=== PATIENT | female | born 1990 | race Caucasian/White ===

== ENCOUNTER 2018-11-06 18:56 | Observation (INO) ==
[2018-11-06] MEDS ORDERED: *HR* FentaNYL (PF) 100 MCG/2 ML VIAL IVP ONE (19:58)
--- NOTE | 2018-11-06 20:21 | Emergency Department Note ---
Disposition Clinical Impression: Abscess of skin or subcutaneous tissue Qualifiers: Site of cutaneous abscess: buttock Qualified Code(s): L02.31 - Cutaneous abscess of buttock Disposition: Still a Patient Condition: Good Instructions: Abscess Follow-up (ED) Referrals: NONE,PCP [Primary Care Provider] - Forms: ED Satisfaction Letter Time of Disposition: 23:08 General Adult HPI - General Chief complaint: ED Skin/Abscess/Foreign Body Stated complaint: abscess to right leg Time Seen by Provider: 11/06/18 19:50 Source: patient Mode of arrival: ambulatory Limitations: no limitations Nursing Notes Reviewed: Yes Vital Signs Reviewed: Yes - History of Present Illness HPI Narrative: Patient is a 28-year-old female with a past medical history of anxiety presents with an abscess for last week. She denies experiencing any trauma to the area. Thinks abscess may be related to shaving her leg. She visited another physician had attempted drainage and she was treated with a 10 day course of Keflex and Bactrim. However the abscess did not improve and continued to worsen and she experiences increased pain. She denies any nausea/vomiting/fevers/chills. De nies exposure to any animal bites or water exposure. Denies IV drug use. Pain Scale: 8 - Related Data Home Medications Medication Instructions Recorded Confirmed No Known Home Drugs 11/06/18 11/06/18 Allergies Allergy/AdvReac Type Severity Reaction Status Date / Time No Known Allergies Allergy Verified 11/06/18 20:04 All systems ED: reviewed and negative except as stated. Review of Systems: As Per HPI Constitutional: Denies: fever, chills, weakness, weight change, night sweats Eyes: Denies: eye pain, vision change ENT ED: Denies: ear pain, throat pain, congestion Cardiovascular: Denies: chest pain, palpitations, dyspnea on exertion Respiratory: Denies: cough, dyspnea, wheezes, hemoptysis Gastrointestinal: Denies: abdominal pain, nausea, vomiting, diarrhea, constipation Genitourinary: Denies: urgency, dysuria, frequency Musculoskeletal: Denies: back pain, neck pain Integumentary: Reports: lesions. Denies: rash Neurological: Denies: headache, weakness, numbness Psychiatric: Reports: anxiety. Denies: depression Endocrine: Denies: fatigue, heat or cold intolerance Past Medical History - Past Medical History Attestation: Yes The following information was validated with the patient. Source: patient Physical Exam - General Limitations: no limitations General appearance: alert, in no apparent distress - Head Head exam: atraumatic, normocephalic, normal inspection - Eye Eye exam: Present: normal appearance, PERRL, EOMI - ENT ENT exam: normal exam, normal oropharynx, mucous membranes moist - Neck Neck exam: Present: normal inspection, full ROM, trachea midline - Chest Chest inspection: Present: normal inspection, symmetric chest wall rise - Respiratory Respiratory exam: Present: normal lung sounds bilaterally - Cardiovascular Cardiovascular exam: Present: regular rate, normal rhythm, normal heart sounds - Abdominal Exam Abdominal exam: Present: soft, Non-Tender. Absent: tenderness, distention, guarding, rebound, rigidity - Extremities Exam Extremities exam: Present: tenderness (5 Centimeter diameter abscess located on the right thigh with surrounding erythema, very tender to palpation.) - Expanded Lower Extremity Exam Hip/Pelvis exam: Present: tenderness, erythema. Absent: full ROM (Right hip range of motion limited due to pain) - Back Exam Back exam: Present: normal inspection, full ROM. Absent: tenderness - Neurological Exam Neurological exam: Present: alert, oriented X3 - Psychiatric Psychiatric exam: Present: normal affect, normal mood - Skin Skin exam: Present: warm, dry, intact, normal color Course Course Narrative: She was seen and examined. Plan is to obtain CBC, BMP, blood cultures, wound cultures, CT of the right lower extremity with contrast. Urine obtained. Bedside ultrasound was performed showing cobblestoning but no pocket of fluid amenable to incision and drainage. Vital Signs Temperature 98.8 F 11/06/18 18:58 Pulse Rate 100 11/06/18 18:58 Respiratory Rate 18 11/06/18 18:58 Blood Pressure 121/77 11/06/18 18:58 O2 Sat by Pulse Oximetry 97 11/06/18 18:58 Temperature 98.8 F 11/06/18 20:23 Pulse Rate 100 11/06/18 20:23 Respiratory Rate 18 11/06/18 20:23 Blood Pressure 121/77 11/06/18 20:23 O2 Sat by Pulse Oximetry 97 11/06/18 20:23 Oxygen Delivery Oxygen Delivery Room Air Medical Decision Making - [facility] Narrative Medical decision making narrative: Patient is a 28-year-old female with a history of anxiety who presents with an abscess of right hip. Patient has been afebrile. Patient completed 5 out of 10 days of a course of Keflex and Bactrim. Labs obtained were notable for a white count of 11.4. Blood and wound cultures were obtained. Urine was negative. A CT scan of the hip with contrast was obtained. Given the patient has failed outpatient antibiotic treatment, patient will likely need inpatient admission for IV antibiotics. She was started on vancomycin. Patient was signed out out to the oncoming team for pending CT scan and admission. - Medical Records Medical records reviewed: Yes I reviewed the patient's medical records. - Lab Data Lab results reviewed: Yes I reviewed the patient's lab results. Result diagrams: 11/06/18 20:07 11/06/18 20:07 Lab Results 11/06/18 11/06/18 11/06/18 Range/Units 20:07 20:07 22:07 WBC 11.4 H (4.3-11.1) K/mcL RBC 4.03 (3.82-4.97) M/mcL Hgb 12.5 (11.5-15.4) g/dL Hct 37.4 (35.3-44.9) % MCV 92.8 (83.0-100.0) fL MCH 31.0 (28.0-33.3) pg MCHC 33.4 (31.6-35.5) g/dL RDW 13.5 (11.5-14.5) % Plt Count 488 H (140-400) K/mcL MPV 9.7 (9.4-12.4) fL Immature Gran % 0.4 (0-4) % Seg Neutrophils % 53.1 % Lymphocytes % 37.7 % Monocytes % 7.1 % Eosinophils % 1.1 % Basophils % 0.6 % Neutrophils # 6.1 (1.6-8.9) K/mcL Lymphocytes # 4.3 (0.6-4.6) K/mcL Monocytes # 0.8 (0.0-1.3) K/mcL Eosinophils # 0.1 (0.0-0.6) K/mcL Basophils # 0.1 (0.0-0.2) K/mcL Sodium 135 L (136-145) mEq/L Potassium 3.8 (3.5-5.1) mEq/L Chloride 102 (98-107) mEq/L Carbon Dioxide 25 (23-29) mEq/L BUN 9 (6-20) mg/dL Creatinine 0.79 (0.60-1.20) mg/dL Est GFR ( Amer) > 60 (> 60) Est GFR (Non-Af Amer) > 60 (> 60) BUN/Creatinine Ratio 11 (6-26) Glucose 97 (70-105) mg/dL Calculated Osmolality 279 L (280-300) Calcium 9.4 (8.6-10.3) mg/dL Urine Test Negative (Negative) - Radiology Data Radiology results reviewed: Yes I reviewed the patient's radiology results.
[2018-11-06] MEDS ORDERED: Isovue-370 500 ML BOTTLE IVP ONE (20:33)
[2018-11-06 20:46] LABS: Basophils # 0.1 K/mcL (0.0-0.2); Basophils % 0.6 %; Eosinophils # 0.1 K/mcL (0.0-0.6); Eosinophils % 1.1 %; Hematocrit 37.4 % (35.3-44.9); Hemoglobin 12.5 g/dL (11.5-15.4); Immature Granulocytes % 0.4 % (0-4); Lymphocytes # 4.3 K/mcL (0.6-4.6); Lymphocytes % 37.7 %; Mean Corpuscular HGB Conc 33.4 g/dL (31.6-35.5); Mean Corpuscular Volume 92.8 fL (83.0-100.0); Mean Platelet Volume 9.7 fL (9.4-12.4); Monocytes # 0.8 K/mcL (0.0-1.3); Monocytes % 7.1 %; Neutrophils # 6.1 K/mcL (1.6-8.9); Platelet Count 488 K/mcL (140-400); Red Blood Count 4.03 M/mcL (3.82-4.97); Red Cell Distribution Width 13.5 % (11.5-14.5); Segmented Neutrophils % 53.1 %; White Blood Count 11.4 K/mcL (4.3-11.1)
--- NOTE | 2018-11-06 20:46 | Emergency Department Note ---
Disposition Clinical Impression: Abscess of skin or subcutaneous tissue Disposition: Still a Patient Condition: Fair Referrals: NONE,PCP [Primary Care Provider] - Forms: ED Satisfaction Letter Time of Disposition: 23:02 General Adult HPI - General Chief complaint: ED Skin/Abscess/Foreign Body Stated complaint: abscess to right leg Time Seen by Provider: 11/06/18 19:50 Source: patient Mode of arrival: ambulatory Limitations: no limitations Nursing Notes Reviewed: Yes Vital Signs Reviewed: Yes - History of Present Illness Pain Scale: 8 - Related Data Home Medications Medication Instructions Recorded Confirmed No Known Home Drugs 11/06/18 11/06/18 Allergies Allergy/AdvReac Type Severity Reaction Status Date / Time No Known Allergies Allergy Verified 11/06/18 20:04 Constitutional: Denies: fever, chills, weakness, weight change, night sweats Eyes: Denies: eye pain, vision change ENT ED: Denies: ear pain, throat pain, congestion Cardiovascular: Denies: chest pain, palpitations, dyspnea on exertion Respiratory: Denies: cough, dyspnea, wheezes, hemoptysis Gastrointestinal: Denies: abdominal pain, nausea, vomiting, diarrhea, constipation Genitourinary: Denies: urgency, dysuria, frequency Musculoskeletal: Denies: back pain, neck pain Integumentary: Reports: lesions. Denies: rash Neurological: Denies: headache, weakness, numbness Psychiatric: Reports: anxiety. Denies: depression Endocrine: Denies: fatigue, heat or cold intolerance Past Medical History - Past Medical History Medical history: Reports: no medical history Psychiatric history: Reports: no psych history - Social History Smoking Status: Never smoker Smokeless Tobacco Status: No Alcohol use: Reports: none Drug use: Reports: none Physical Exam - General Limitations: no limitations Course Vital Signs Temperature 98.8 F 11/06/18 18:58 Pulse Rate 100 11/06/18 18:58 Respiratory Rate 18 11/06/18 18:58 Blood Pressure 121/77 11/06/18 18:58 O2 Sat by Pulse Oximetry 97 11/06/18 18:58 Temperature 98.8 F 11/06/18 20:23 Pulse Rate 100 11/06/18 20:23 Respiratory Rate 18 11/06/18 20:23 Blood Pressure 121/77 11/06/18 20:23 O2 Sat by Pulse Oximetry 97 11/06/18 20:23 Oxygen Delivery Oxygen Delivery Room Air Medical Decision Making - Lab Data Result diagrams: 11/06/18 20:07 11/06/18 20:07 Lab Results 11/06/18 11/06/18 11/06/18 Range/Units 20:07 20:07 22:07 WBC 11.4 H (4.3-11.1) K/mcL RBC 4.03 (3.82-4.97) M/mcL Hgb 12.5 (11.5-15.4) g/dL Hct 37.4 (35.3-44.9) % MCV 92.8 (83.0-100.0) fL MCH 31.0 (28.0-33.3) pg MCHC 33.4 (31.6-35.5) g/dL RDW 13.5 (11.5-14.5) % Plt Count 488 H (140-400) K/mcL MPV 9.7 (9.4-12.4) fL Immature Gran % 0.4 (0-4) % Seg Neutrophils % 53.1 % Lymphocytes % 37.7 % Monocytes % 7.1 % Eosinophils % 1.1 % Basophils % 0.6 % Neutrophils # 6.1 (1.6-8.9) K/mcL Lymphocytes # 4.3 (0.6-4.6) K/mcL Monocytes # 0.8 (0.0-1.3) K/mcL Eosinophils # 0.1 (0.0-0.6) K/mcL Basophils # 0.1 (0.0-0.2) K/mcL Sodium 135 L (136-145) mEq/L Potassium 3.8 (3.5-5.1) mEq/L Chloride 102 (98-107) mEq/L Carbon Dioxide 25 (23-29) mEq/L BUN 9 (6-20) mg/dL Creatinine 0.79 (0.60-1.20) mg/dL Est GFR ( Amer) > 60 (> 60) Est GFR (Non-Af Amer) > 60 (> 60) BUN/Creatinine Ratio 11 (6-26) Glucose 97 (70-105) mg/dL Calculated Osmolality 279 L (280-300) Calcium 9.4 (8.6-10.3) mg/dL Urine Test Negative (Negative) Attestation Statement - Attestation Attestation: I examined this patient and my medical decision-making was reviewed with the Resident Physician. I agree with the documented findings, disposition and treatment plan as described except to the extent set forth below. Patient presents to the ED with a chief complaint of an abscess. Patient has an abscess on her right posterior thigh/buttock. Onset several days ago. She has seen her PCP and she has had an I&D performed. It is getting worse. She has been on antibiotics. On exam she is in no distress. She is a large open wound to the right posterior thigh and buttock with purulent drainage. Mild ordoñez rrounding cellulitis. Plan. Area is open and draining. Do not believe she needs an I&D in the ED. We will check some basic labs and a CT scan to evaluate for extension. Likely admission for IV anabiotic. I was present for the bedside ultrasound. CT scan still pending at this time. 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
[2018-11-06 21:05] LABS: BUN/Creatinine Ratio 11 (6-26); Blood Urea Nitrogen 9 mg/dL (6-20); Calcium 9.4 mg/dL (8.6-10.3); Carbon Dioxide 25 mEq/L (23-29); Chloride 102 mEq/L (98-107); Glucose 97 mg/dL (70-105); Osmolality,Calculated 279 (280-300); Potassium 3.8 mEq/L (3.5-5.1); Sodium 135 mEq/L (136-145); eGFR For African Americans > 60 (> 60); eGFR For Non-African Americans > 60 (> 60)
[2018-11-06] MEDS ORDERED: Nicotine 7 MG PATCH.TD24 TD ONE (22:20)
[2018-11-07] MEDS ORDERED: Acetaminophen 325 MG TABLET PO PRN (01:15)
[2018-11-07] MEDS: *HR* HYDROcodone/Acet 5/325 mg TABLET PO PRN ×3 (01:51→20:57)
[2018-11-07] MEDS ORDERED: Naloxone 0.4 MG/ML INJ IVP PRN (03:33)
--- NOTE | 2018-11-07 03:57 | Internal Med History&Physical ---
Date of Encounter: 11/07/18 Time of Encounter: 03:15 Internal Medicine - H&P: HPI Chief complaint: Abscess Admitted From: Home Plans for Post Hospital Care: Home History of present illness: Ms. Do is a 28 year old female with past medical history significant for anxiety who presents for 1 week history of abscess to her right lower extremity. Reports being seen at [facility] ER on Friday and underwent an incision and drainage and was started on keflex and bactrim. Reports calling ER today as wound continues to have drainage, redness, and pain and they advised her to come to [facility] for further evaluation. Reports chills and possible fever at home but has not checked her temperature. Also has had some nausea she thinks may be due to taking antibiotics. Denies any known trauma to area, just started noticing it getting red and swollen. Reports she may have cut herself shaving but is unsure. ER performed bedside ultrasound which showed cobblestoning but no pockets of fluid amendable to incision and drainage. ER also completed CT of right lower extremity which showed skin thickening and focal subcutaneous stranding and a few locules of subcutaneous gas along the posterior right thigh with irregularity of the superficial soft tissues suggesting soft tissue wound/ulceration with underlying infectious/inflammatory change, with no organized drainable fluid collection identified, no acute osseous abnormality, and no evidence of osteomyelitis. Patient received pain medication in ER and once to floor and now reports current improvement in her pain. Pain is exacerbated with palpation and movement of extremity. Currently denies any headache, chest pain, shortness of breath, abdominal pain, bowel or bladder changes. No longer follows regularly with a PCP as her former provider has retired. Denies any alcohol or drug use. Past Med Surg Social Fam HX - Past Medical History Medical history: no medical history Psychiatric history: no psych history - Past Surgical History Surgical History: other Additional surgical history: cyst removed from uterus - Social History Smoking Status: Current every day smoker Packs per day: 2 Smokeless Tobacco Status: No Alcohol use: none Drug use: none - Family History Father Living Status: Hx Family Cancer: Yes (prostate) Sister Living Status: Still Living Hx Family Cancer: Yes (breast cancer) Internal Medicine - H&P: Meds No Known Home Drugs 11/06/18 [History] Allergy/AdvReac Type Severity Reaction Status Date / Time No Known Allergies Allergy Verified 11/06/18 20:04 All Systems PM: A 10-system review of systems was performed and is negative for pertinent findings except as documented above in the HPI. - Constitutional Vitals: Temp Pulse Resp BP Pulse Ox 98.0 F 72 17 111/76 98 11/07/18 00:13 11/07/18 00:13 11/07/18 00:13 11/07/18 00:13 11/07/18 00:13 Exam: General: Alert and oriented. Skin:Normal color, no rash, no lesions. 5cm open abscess on right lower extremity with serous drainage noted and errythema surrounding site. HEENT:Pupils equal, round and reactive. Cardiovascular:Normal S1 & S2, no rubs, murmurs or gallops. No JVD. Pulse regular. Lungs:Normal breath sounds, no wheezes or crackles. Abdomen:Soft, non-tender, no rigidity. Extremities:No deformity, no joint swelling or clubbing. Tenderness and edema noted to right lower extremity in area of abscess, distal PMS intact. Neurological:Normal cognition and motor skills. Pulses:Carotid and radial pulses normal +2. Rest of the physical exam is non contributory. Internal Med - H&P Results - Labs CBC & Chem 7: 11/07/18 05:25 11/07/18 05:25 Labs: Short CBC 11/06/18 Range/Units 20:07 WBC 11.4 H (4.3-11.1) K/mcL Hgb 12.5 (11.5-15.4) g/dL Hct 37.4 (35.3-44.9) % Plt Count 488 H (140-400) K/mcL Neutrophils # 6.1 (1.6-8.9) K/mcL BMP 11/06/18 20:07 Sodium 135 L Potassium 3.8 Chloride 102 Carbon Dioxide 25 BUN 9 Creatinine 0.79 Glucose 97 Calcium 9.4 - Impressions ITS Impressions Lower Extremity CT 11/06/18 20:33 IMPRESSION: 1. Skin thickening and focal subcutaneous stranding and a few locules of subcutaneous gas along the posterior right thigh with irregularity of the superficial soft tissues suggesting soft tissue wound/ulceration with underlying infectious/inflammatory change. No organized drainable fluid collection identified. 2. No acute osseous abnormality. No CT evidence for osteomyelitis. D/ / Brady Heath MD / Brady Heath MD Interpreting Provider: Brady Heath MD - Assessment and Plan (1) Abscess of skin or subcutaneous tissue Current Visit: Yes Status: Acute Assessment and plan: Had I/D at [facility] ER on Friday and started on keflex and bactrim. Continues to have drainage, redness, and pain at site. Bedside ultrasound which showed cobblestoning but no pockets of fluid amendable to incision and drainage. CT showed skin thickening and focal subcutaneous stranding and a few locules of subcutaneous gas along the posterior right thigh with irregularity of the superficial soft tissues suggesting soft tissue wound/ulceration with underlying infectious/inflammatory change, with no organized drainable fluid collection identified, no acute osseous abnormality, and no evidence of osteomyelitis. ER obtained wound and blood cultures that are pending. Started on Vancomycin in ER, will continue same. Surgery consult ordered for any further recommendations. Pain control with PRN pain medications. Qualifiers: Site of cutaneous abscess: extremity Laterality: right Qualified Code(s): L02.415 - Cutaneous abscess of right lower limb (2) Increased white blood cell count Current Visit: Yes Status: Acute Assessment and plan: Suspect secondary to abscess. Plan as stated above. Qualifiers: Leukocytosis type: unspecified Qualified Code(s): D72.829 - Elevated white blood cell count, unspecified (3) Serum sodium decreased Current Visit: Yes Status: Acute Assessment and plan: Minimally decreased at 135. Repeat labs ordered. (4) Anxiety Current Visit: Yes Status: Chronic Assessment and plan: History of anxiety not currently on any home medications. Continue to monitor. - Time Spent With Patient Total time spent is greater than 50% in coordination of care (as documented) at patient's floor/unit and/or counseling patient:
[2018-11-07 05:39] LABS: Basophils # 0.1 K/mcL (0.0-0.2); Basophils % 0.6 %; Eosinophils # 0.2 K/mcL (0.0-0.6); Eosinophils % 2.1 %; Hematocrit 35.1 % (35.3-44.9); Hemoglobin 11.4 g/dL (11.5-15.4); Immature Granulocytes % 0.2 % (0-4); Lymphocytes # 4.4 K/mcL (0.6-4.6); Lymphocytes % 52.3 %; Mean Corpuscular HGB Conc 32.5 g/dL (31.6-35.5); Mean Corpuscular Hemoglobin 30.7 pg (28.0-33.3); Mean Corpuscular Volume 94.6 fL (83.0-100.0); Mean Platelet Volume 9.2 fL (9.4-12.4); Monocytes # 0.8 K/mcL (0.0-1.3); Monocytes % 9.2 %; Platelet Count 394 K/mcL (140-400); Red Blood Count 3.71 M/mcL (3.82-4.97); Red Cell Distribution Width 13.5 % (11.5-14.5); Segmented Neutrophils % 35.6 %; White Blood Count 8.4 K/mcL (4.3-11.1)
[2018-11-07 05:56] LABS: BUN/Creatinine Ratio 12 (6-26); Blood Urea Nitrogen 10 mg/dL (6-20); Calcium 8.8 mg/dL (8.6-10.3); Carbon Dioxide 28 mEq/L (23-29); Chloride 104 mEq/L (98-107); Glucose 90 mg/dL (70-105); Osmolality,Calculated 287 (280-300); Potassium 4.3 mEq/L (3.5-5.1); Sodium 139 mEq/L (136-145); eGFR For African Americans > 60 (> 60); eGFR For Non-African Americans > 60 (> 60)
[2018-11-07] MEDS: Nicotine 21 MG PATCH.TD24 TD SCH (11:38)
[2018-11-07] MEDS: *HR* HYDROcodone/Acet 5/325 mg TABLET PO SCH ×2 (11:38→16:16)
--- NOTE | 2018-11-07 11:38 | Event Note ---
Date of Encounter: 11/07/18 Time of Encounter: 09:35 Whitney Do is a 28-year-old female with history of anxiety who was transferred from [facility] for right upper thigh abscess with failed outpatient antibiotic therapy. S/p I&D at [facility] on Friday and was started on Keflex and Bactrim, however continued to have drainage, redness, and pain. Patient admits to hot flashes but has been afebrile since arrival. Vital signs stable. Exam: Gen.alert and oriented, no acute distress. Sitting up comfortably in bed. Headnormocephalic, atraumatic EyesEOMI, nonicteric sclera Necktrachea midline CardioRRR, no murmurs Resp-CTAB, no wheezing [id number] circular ulceration over right posterior upper thigh with erythematous edges, granulation tissue with small amount of black necrotic tissue centrally. Skinwarm, dry, intact. No rashes noted. Neurono focal deficits Psychappropriate mood and affect #1 Subcutaneous abscess Failed outpatient antibiotics CT - subcutaneous edema and gas assoc with superficial ulceration with inflammatory changes. No drainable fluid collection or evidence of osteomyelitis Afebrile Leukocytosis resolved, WBC 8.4 today Acute care surgery consulted, appreciate recommendations Continue vancomycin d2 Continue pain management and supportive care
[2018-11-07] MEDS: Nicotine 2 MG GUM BC PRN ×3 (11:39→23:15)
--- NOTE | 2018-11-07 13:50 | AcuteCare Surgery Consult Note ---
Date of Encounter: 11/07/18 Time of Encounter: 14:00 Assessment and Plan (1) Abscess of skin or subcutaneous tissue Current Visit: Yes Status: Acute Ulcerated wound. Recommend debridement of RLE infected, necrotic ulcerated wound. Procedure, risks and benefits d/w pt. She understands possible complications that include bleeding and infection. She wishes to proceed as advised. NPO after MN. Consent obtained. Surgery scheduled. Continue IV abx Qualifiers: Site of cutaneous abscess: extremity Laterality: right Qualified Code(s): L02.415 - Cutaneous abscess of right lower limb History of Present Illness Consult date: 11/07/18 Reason for consult: wound care Requesting physician: Wilfrid Hendrickson History of present illness: This 28 y/o female presents to [facility] c/o severe pain, swelling and redness to right leg. She reports that she thinks she knicked the skin while shaving. The area then became infected and progressively worsening daily. +fever. No active drainage. Past Med Surg Social Fam HX - Past Medical History Medical history: no medical history Psychiatric history: no psych history - Past Surgical History Surgical History: other Additional surgical history: cyst removed from uterus - Social History Smoking Status: Current every day smoker Packs per day: 2 Smokeless Tobacco Status: No Alcohol use: none Drug use: none - Family History Father Living Status: Hx Family Cancer: Yes (prostate) Sister Living Status: Still Living Hx Family Cancer: Yes (breast cancer) Medications and Allergies Sulfamethoxazole/Trimeth DS [Bactrim DS] 1 tab PO BID 11/07/18 [History] cephALEXin [Keflex] 500 mg PO BID 11/07/18 [History] Allergy/AdvReac Type Severity Reaction Status Date / Time No Known Allergies Allergy Verified 11/07/18 18:27 Review of Systems All systems PM: The remainder of the systems were reviewed and are negative - Constitutional as per HPI, fever(s), no anorexia, no chills, no excessive sweating, no fatigue, no night sweats, no weakness - EENT Nose, mouth and throat: no dry mouth, no dysphagia, no nasal congestion, no nasal discharge, no sinus pain, no sinus pressure, no sore throat - Cardiovascular no chest pain, no diaphoresis, no dyspnea, no edema - Respiratory no cough, no dyspnea, no wheezing - Gastrointestinal no abdominal pain, no constipation, no diarrhea, no nausea, no vomiting - Genitourinary Genitourinary: no dysuria, no flank pain, no urinary frequency - Musculoskeletal no back pain, no joint swelling, no limited range of motion, no neck pain - Integumentary dry skin, wounds (right leg), no pruritus, no rash, no jaundice - Neurological no confusion, no dizziness, no focal weakness, no headache(s), no weakness - Psychiatric no anxiety, no depression - Hematologic/Lymphatic no easy bleeding, no easy bruising General Surgery Exam Initial Vital Signs Temp Pulse Resp BP Pulse Ox 98.8 F 100 18 121/77 97 11/06/18 18:58 11/06/18 18:58 11/06/18 18:58 11/06/18 18:58 11/06/18 18:58 - General physical appearance well nourished, no distress, moderate pain. negative: jaundice - Eyes PERRL, normal ocular movement. negative: icteric - ENT no congestion, dry mucosa. negative: nasal discharge - Neck no masses, trachea midline, no lymphadectomy, no venous distension - Respiratory normal respiratory effort, clear to auscultation - Cardiovascular Cardiovascular exam: Present: RRR. Absent: JVD - Abdomen Abdomen general surgery: Present: bowel sounds present, soft, non tender - Genitourinary Present: normal external genitalia - Integumentary Integumentary general surgery: Present: other (right poseriolateral thigh with ulcerated wound with necrotic tissue and severe TTP) - Neurologic Present: CN 2-12 grossly intact, normal coordination - Musculoskeletal Present: normal posture - Psychiatric Psychiatric general surgery: Present: A&Ox3, appropriate Exam Initial Vital Signs Temp Pulse Resp BP Pulse Ox 98.8 F 100 18 121/77 97 11/06/18 18:58 11/06/18 18:58 11/06/18 18:58 11/06/18 18:58 11/06/18 18:58 Results - Labs 11/07/18 05:25 11/07/18 05:25 Abnormal lab results WBC 11.4 K/mcL (4.3-11.1) H 11/06/18 20:07 RBC 3.71 M/mcL (3.82-4.97) L 11/07/18 05:25 Hgb 11.4 g/dL (11.5-15.4) L 11/07/18 05:25 Hct 35.1 % (35.3-44.9) L 11/07/18 05:25 Plt Count 488 K/mcL (140-400) H 11/06/18 20:07 MPV 9.2 fL (9.4-12.4) L 11/07/18 05:25 Sodium 135 mEq/L (136-145) L 11/06/18 20:07 Calculated Osmolality 279 (280-300) L 11/06/18 20:07 Diabetes panel 11/06/18 11/07/18 Range/Units 20:07 05:25 Sodium 135 L 139 (136-145) mEq/L Potassium 3.8 4.3 (3.5-5.1) mEq/L Chloride 102 104 (98-107) mEq/L Carbon Dioxide 25 28 (23-29) mEq/L BUN 9 10 (6-20) mg/dL Creatinine 0.79 0.83 (0.60-1.20) mg/dL Glucose 97 90 (70-105) mg/dL Calcium 9.4 8.8 (8.6-10.3) mg/dL Calcium panel 11/06/18 11/07/18 Range/Units 20:07 05:25 Calcium 9.4 8.8 (8.6-10.3) mg/dL Pituitary panel 11/06/18 11/07/18 Range/Units 20:07 05:25 Sodium 135 L 139 (136-145) mEq/L Potassium 3.8 4.3 (3.5-5.1) mEq/L Chloride 102 104 (98-107) mEq/L Carbon Dioxide 25 28 (23-29) mEq/L BUN 9 10 (6-20) mg/dL Creatinine 0.79 0.83 (0.60-1.20) mg/dL Glucose 97 90 (70-105) mg/dL Calcium 9.4 8.8 (8.6-10.3) mg/dL Adrenal panel 11/06/18 11/07/18 Range/Units 20:07 05:25 Sodium 135 L 139 (136-145) mEq/L Potassium 3.8 4.3 (3.5-5.1) mEq/L Chloride 102 104 (98-107) mEq/L Carbon Dioxide 25 28 (23-29) mEq/L BUN 9 10 (6-20) mg/dL Creatinine 0.79 0.83 (0.60-1.20) mg/dL Glucose 97 90 (70-105) mg/dL Calcium 9.4 8.8 (8.6-10.3) mg/dL All other labs normal. - Imaging Additional studies: CT scan RLE reveals infected ulcer vs abscess Consult Discharge Plan - Plan Referrals: NONE,PCP [Primary Care Provider] -
--- NOTE | 2018-11-07 20:23 | Anesthesia Evaluation PreOp ---
Date of Encounter: 11/07/18 Time of Encounter: 20:00 - Past History Planned Operation: Rt LE Wound Debridement Cardiac History: Denies any Significant Hx Pulmonary History: Smoker SYSTEMS ENG History: Denies Any Significant HX Other Medical History: Other (Anxiety Obese) Anesthesia History: No Prior Anesthetic Complications : No Test: Negative Alcohol Use: none Drug use: none Medications and Allergies Sulfamethoxazole/Trimeth DS [Bactrim DS] 1 tab PO BID 11/07/18 [History] cephALEXin [Keflex] 500 mg PO BID 11/07/18 [History] Allergy/AdvReac Type Severity Reaction Status Date / Time No Known Allergies Allergy Verified 11/07/18 18:27 - Meds/Allergy Pre-op Review Medications Reviewed: Yes Allergies Reviewed: Yes Beta Blockers on Current Med List: No Anesthesia Results - Labs 11/07/18 05:25 11/07/18 05:25 Laboratory Tests 11/06/18 11/07/18 11/07/18 22:07 05:25 05:25 Hgb 11.4 L Hct 35.1 L Plt Count 394 Sodium 139 Potassium 4.3 BUN 10 Creatinine 0.83 Urine Test Negative Anesthesia Exam O2 Sat Weight 84.051 kg O2 Sat by Pulse Oximetry 98 O2 Sat by Pulse Oximetry 99 O2 Sat by Pulse Oximetry 98 O2 Sat by Pulse Oximetry 98 O2 Sat by Pulse Oximetry 98 O2 Sat by Pulse Oximetry 98 O2 Sat by Pulse Oximetry 98 Vital Signs Temp Pulse Resp BP Pulse Ox 98.8 F 100 18 121/77 97 11/06/18 18:58 11/06/18 18:58 11/06/18 18:58 11/06/18 18:58 11/06/18 18:58 Height: 5'3 Weight: 185 lbs NPO (# of Hours): MN - HEENT Pupil (Motor): Pupils equal, EOMI Mallampati: II Teeth: Edentulous Oral Opening: Greater than 3 - SYSTEMS ENG LOC: Oriented SYSTEMS ENG Motor: Normal RUE, Normal LUE, Normal RLE, Normal LLE, Normal Face SYSTEMS ENG Sensory: Normal: RUE, LUE, RLE, LLE, Face - Cardiac Rhythm: Regular Murmur: None JVD: No Carotid Bruit: No - Pulmonary Breath Sounds: bilateral Clear Respiratory Effort: Symmetrical Anesthesia Assess/Plan ASA Score: 2 Level of consciousness: Cooperative, Oriented Anesthetic Plan: General Autologous Blood: No Monitoring Plan: Standard Monitors Recovery Plan: PACU (Discussed GA, agrees to proceed)
[2018-11-08] MEDS: *HR* HYDROcodone/Acet 5/325 mg TABLET PO PRN ×5 (00:58→22:20)
[2018-11-08] MEDS: Nicotine 21 MG PATCH.TD24 TD SCH (08:23)
[2018-11-08] MEDS: Nicotine 2 MG GUM BC PRN ×4 (08:37→21:01)
[2018-11-08 09:27] LABS: Hematocrit 36.9 % (35.3-44.9); Hemoglobin 11.8 g/dL (11.5-15.4); Mean Corpuscular Hemoglobin 30.1 pg (28.0-33.3); Mean Corpuscular Volume 94.1 fL (83.0-100.0); Mean Platelet Volume 9.7 fL (9.4-12.4); Platelet Count 416 K/mcL (140-400); Red Blood Count 3.92 M/mcL (3.82-4.97); Red Cell Distribution Width 13.3 % (11.5-14.5); White Blood Count 6.3 K/mcL (4.3-11.1)
[2018-11-08 09:37] LABS: INR 1.1; Prothrombin Time 12.4 Seconds (9.4-12.1)
--- NOTE | 2018-11-08 10:53 | Internal Med Progress Note ---
Hospitalist Progress Note - Encounter Date of Encounter: 11/08/18 Time of Encounter: 08:45 - Subjective Interval History: Whitney Do is a 28-year-old female with history of anxiety who was transferred from [facility] for right upper thigh abscess with failed outpatient antibiotic therapy. S/p I&D at [facility] on Friday and was started on Keflex and Bactrim, however continued to have drainage, redness, and pain. Patient complaining of pain and discomfort due to wound and required multiple dressing changes. Denies fever, chills, N/V/D. - Exam Vitals: Temp Pulse Resp BP Pulse Ox 97.2 F L 50 14 102/64 100 11/08/18 07:46 11/08/18 07:46 11/08/18 07:46 11/08/18 07:46 11/08/18 07:46 Exam: Gen.alert and oriented, no acute distress. Sitting up comfortably in bed. Headnormocephalic, atraumatic EyesEOMI, nonicteric sclera Necktrachea midline CardioRRR, no murmurs Resp-CTAB, no wheezing [id number] circular ulceration over right posterior upper thigh with erythematous edges, granulation tissue with small amount of black necrotic tissue centrally. Skinwarm, dry, intact. No rashes noted. Neurono focal deficits Psychappropriate mood and affect - Assessment and Plan (1) Abscess of skin or subcutaneous tissue Current Visit: Yes Status: Acute Assessment and Plan: CT - subcutaneous edema. No drainable fluid collection or evidence of osteomyelitis. Afebrile, vitals stable Leukocytosis resolved Surgery planning for debridement today Continue vancomycin d3 Continue pain management and supportive care DVT Prophylaxis: SQ heparin - Time Spent with Patient Total time spent is greater than 50% in coordination of care (as documented) at patient's floor/unit and/or counseling patient: Plan of Care Discussed with: patient Internal Medicine: Result - Labs CBC & Chem 7: 11/08/18 08:18 11/07/18 05:25 Labs: Short CBC 11/08/18 Range/Units 08:18 WBC 6.3 (4.3-11.1) K/mcL Hgb 11.8 (11.5-15.4) g/dL Hct 36.9 (35.3-44.9) % Plt Count 416 H (140-400) K/mcL - ABG Interpretation ABG results: PT/INR, D-dimer PT 12.4 Seconds (9.4-12.1) H 11/08/18 08:18 Consult Discharge Plan - Plan Referrals: NONE,PCP [Primary Care Provider] - (1) Abscess of skin or subcutaneous tissue Qualifiers: Site of cutaneous abscess: extremity Laterality: right Qualified Code(s): L02.415 - Cutaneous abscess of right lower limb
[2018-11-08] MEDS ORDERED: Propofol 500 MG/50 ML INFUS..BTL ONE (14:27)
[2018-11-08] MEDS ORDERED: Lidocaine -MPF 2% 2 ML VIAL ONE (14:28)
[2018-11-08] MEDS ORDERED: *HR* Midazolam HCl 2 MG/2 ML VIAL ONE (14:32)
[2018-11-08] MEDS ORDERED: *HR* FentaNYL (PF) 100 MCG/2 ML VIAL ONE (14:32)
[2018-11-08] MEDS ORDERED: Acetaminophen IV 1,000 MG/100 ML INFUS..BTL ONE (14:35)
[2018-11-08] MEDS ORDERED: *HR* Succinylcholine 200 MG/10 ML VIAL IVP ONE (15:31)
[2018-11-08] MEDS ORDERED: Ondansetron 4 MG/2 ML VIAL ONE (15:38)
[2018-11-08] MEDS ORDERED: Dexamethasone 4 MG/ML VIAL ONE (15:38)
[2018-11-08] MEDS ORDERED: *HR* FentaNYL (PF) 100 MCG/2 ML VIAL IVP PRN (16:10)
[2018-11-08] MEDS ORDERED: *HR* Promethazine 25 MG/ML VIAL IVP PRN (16:10)
[2018-11-08] MEDS ORDERED: *HR* OxyCODONE Immed Rel 5 MG TABLET PO PRN (16:10)
[2018-11-08] MEDS ORDERED: Ondansetron 4 MG/2 ML VIAL IVP ONE (16:10)
[2018-11-08] MEDS ORDERED: *HR* HYDROmorphone (PF) 1 MG/ML SYRINGE ONE (16:15)
--- NOTE | 2018-11-08 16:15 | Operative Note ---
Date of procedure: 11/08/18 Pre-op diagnosis: Right leg wound Post-op diagnosis: same Procedure: Excisional debridement of right leg wound Complications: None Anesthesia: GETA Surgeon: Mechelle Wilson Was there an diagnostic assistant present: No Estimated blood loss (cc): 15 Specimen: Cultures Condition: stable Disposition: PACU Procedure in Detail: This 28 y/o female pt was taken to OR and placed in supine position with right hip bumped up. The right posteriolateral thigh area was prepped and draped in the usual sterile fashion. After the injection of 0.5% Marcaine, a 10 -blade scalpel was used to make an circular incision around an infected and necrotic wound. Immediate drainage of purulent fluid was achieved. This fluid was cultured with aerobic and anaerobic culture swabs. The abscess cavity was completely drained. It was explored for loculations and tracking. The infected tissue was debrided. The resulting wound measured 3 cmx 3 cm x 3cm. No signs of necrosis or gangrene remained. The wound cavity was then irrigated with pulse lavage. Hemostasis was perfected using electrocautery. The wound was packed with 1/2 inch iodoform packing strip. A sterile cover dressing was placed. Pt tolerated the procedure well and was taken to the PACU in good condition.
[2018-11-08] MEDS: *HR* HYDROmorphone (PF) 1 MG/ML SYRINGE IVP PRN ×3 (16:17→16:45)
[2018-11-08] MEDS ORDERED: *HR* OxyCODONE Immed Rel 5 MG TABLET ONE (16:17)
[2018-11-08] MEDS ORDERED: *HR* Promethazine 25 MG/ML VIAL ONE (16:23)
--- NOTE | 2018-11-08 16:52 | Anesthesia Evaluation Post Op ---
Date of Encounter: 11/08/18 Time of Encounter: 16:51 - Vital Signs Vital Signs: Vital Signs/O2 Sat, Most Current Temp Pulse Resp BP Pulse Ox 98.6 F 54 14 138/87 98 11/08/18 16:35 11/08/18 16:45 11/08/18 16:45 11/08/18 16:45 11/08/18 16:45 - Lungs Lungs: Clear Ascult./Percussion - Airway Airway: Non-obstructed - Cardiovascular Regular Rate - Mental Status Mental Status: Alert & Oriented, Answers Appropriately - Pain Pain Scale: 0 Pain Scale used: Numeric (1 - 10) - Nausea Vomiting Nausea Vomiting: Not Present - Hydration Hydration: Ice chips, Has not voided - Discharge PostOp Status: Transfer Patient to floor
[2018-11-08] MEDS ORDERED: Acetaminophen 325 MG TABLET PO PRN (17:11)
[2018-11-08] MEDS ORDERED: Naloxone 0.4 MG/ML INJ IVP PRN (17:11)
[2018-11-08] MEDS: *HR* OxyCODONE/APAP 5/325 TABLET PO PRN (20:12)
[2018-11-08] MEDS ORDERED: Nicotine 21 MG PATCH.TD24 TD SCH (21:15)
[2018-11-08] MEDS ORDERED: hydrOXYzine pamoate 25 MG CAPSULE PO PRN (21:15)
[2018-11-09] MEDS: *HR* OxyCODONE/APAP 5/325 TABLET PO PRN ×5 (00:12→17:05)
[2018-11-09] MEDS: *HR* HYDROcodone/Acet 5/325 mg TABLET PO PRN ×4 (02:20→15:39)
[2018-11-09] MEDS: Nicotine 2 MG GUM BC PRN ×2 (02:21→08:50)
[2018-11-09 05:08] LABS: Hematocrit 37.7 % (35.3-44.9); Hemoglobin 12.4 g/dL (11.5-15.4); Mean Corpuscular HGB Conc 32.9 g/dL (31.6-35.5); Mean Corpuscular Hemoglobin 30.7 pg (28.0-33.3); Mean Corpuscular Volume 93.3 fL (83.0-100.0); Mean Platelet Volume 9.9 fL (9.4-12.4); Platelet Count 478 K/mcL (140-400); Red Blood Count 4.04 M/mcL (3.82-4.97); Red Cell Distribution Width 12.6 % (11.5-14.5)
[2018-11-09 05:11] LABS: White Blood Count 10.3 K/mcL (4.3-11.1)
--- NOTE | 2018-11-09 08:29 | Internal Med Progress Note ---
Hospitalist Progress Note - Encounter Date of Encounter: 11/09/18 - Subjective Interval History: Whitney Do is a 28-year-old female with history of anxiety who was transferred from [facility] for right upper thigh abscess with failed outpatient antibiotic therapy. S/p I&D at [facility] on Friday and was started on Keflex and Bactrim, however continued to have drainage, redness, and pain. S/p debridment yesterday, on Vancomycin. - Exam Vitals: Temp Pulse Resp BP Pulse Ox 98.6 F 58 16 111/73 99 11/09/18 07:53 11/09/18 07:53 11/09/18 07:53 11/09/18 07:53 11/09/18 07:53 - Assessment and Plan (1) Abscess of skin or subcutaneous tissue Current Visit: Yes Status: Acute Assessment and Plan: CT - subcutaneous edema. No drainable fluid collection or evidence of osteomyelitis. Wound cx 11/06/18 positive for Gram positive Cocci, pending final report Wound cx 11/08/18 pending Blood cx 11/06/18 NGTD s/p debridement Continue vancomycin Continue pain management and supportive care DVT Prophylaxis: SQ heparin - Time Spent with Patient Total time spent is greater than 50% in coordination of care (as documented) at patient's floor/unit and/or counseling patient: Internal Medicine: Result - Labs CBC & Chem 7: 11/09/18 04:14 11/07/18 05:25 Labs: Short CBC 11/08/18 11/09/18 Range/Units 08:18 04:14 WBC 6.3 10.3 D (4.3-11.1) K/mcL Hgb 11.8 12.4 (11.5-15.4) g/dL Hct 36.9 37.7 (35.3-44.9) % Plt Count 416 H 478 H (140-400) K/mcL - ABG Interpretation ABG results: PT/INR, D-dimer PT 12.4 Seconds (9.4-12.1) H 11/08/18 08:18 Consult Discharge Plan - Plan Referrals: NONE,PCP [Primary Care Provider] - (1) Abscess of skin or subcutaneous tissue Qualifiers: Site of cutaneous abscess: extremity Laterality: right Qualified Code(s): L02.415 - Cutaneous abscess of right lower limb
[2018-11-09] MEDS ORDERED: Nicotine 21 MG PATCH.TD24 TD SCH (09:00)
--- NOTE | 2018-11-09 10:13 | AcuteCareSurgery Progress Note ---
Date of Encounter: 11/09/18 Time of Encounter: 10:08 - Assessment and Plan (1) Abscess of skin or subcutaneous tissue Current Visit: Yes Status: Acute Date of procedure: 11/08/18 Pre-op diagnosis: Right leg wound Post-op diagnosis: same Procedure: Excisional debridement of right leg wound Complications: None Anesthesia: [place] Surgeon: Mechelle Wilson POD #1. Final cultures remain pending. Her wound is improved. Continue daily wound care per bedside RN. OK to d/c from a surgical perspective. Follow up in wound care with Dr. Antonio. Please send iodoform gauze home with patient. 4X4s and paper tape have been ordered. ATBX per primary team. OK to d/c from a surgical perspective. Pt reports her sister is an [employer] and will do her wound packing. Qualifiers: Site of cutaneous abscess: extremity Laterality: right Qualified Code(s): L02.415 - Cutaneous abscess of right lower limb Objective Vital Signs - Last 8 Hours Temp Pulse Resp BP Pulse Ox 11/09/18 07:53 98.6 F 58 16 111/73 99 11/09/18 04:04 97.6 F 50 17 119/68 98 Intake and Output 11/08/18 11/09/18 11/09/18 23:59 07:59 15:59 Intake Total 250 / 250 Balance 250 / 250 Intake: IV Fluids 250 / 250 Vancocin 1,250 MG In 0.9 % 250 / 250 Sodium Chloride 250 ML @ 167 mls/hr IVPB Q12H MEHREEN Rx#: [id number] Other: Meal Breakfast Percent of Meal Consumed 80% # Voids 1 Weight 85.4 kg Patient Weight 11/09/18 23:59 Weight 85.4 kg - Labs 11/09/18 04:14 11/07/18 05:25 Consult Discharge Plan - Plan Referrals: NONE,PCP [Primary Care Provider] -
--- NOTE | 2018-11-09 10:58 | Discharge Summary ---
- NOTES TO OUTPATIENT PROVIDER Notes to Outpatient Provider: Admitted for wound abscess on right thigh, MRSA positive. Transitioned to oral Bactrim DS for 7 days. Follow up with Dr. Antonio in wound clinic. Follow up with PCP within 5-7 days. Orders not resulted at time of discharge: Pending orders 11/06/18 21:14 Culture,Blood [BC] Stat 11/08/18 15:50 Culture,Anaerobic [RM] Routine Culture,Wound [RM] Routine Date of Encounter: 11/09/18 Time of Encounter: 09:30 - Discharge Diagnosis (1) Abscess of skin or subcutaneous tissue Priority: Primary Status: Acute Qualifiers: Site of cutaneous abscess: extremity Laterality: right Qualified Code(s): L02.415 - Cutaneous abscess of right lower limb Hospital course: Whitney Do is a 28-year-old female with history of anxiety who presented to the ED on 11/06/18 with right upper thigh abscess after failed outpatient antibiotic therapy on Bactrim and Keflex. S/p I&D at [facility] on Friday, however continued to have drainage, redness, and pain. WBC was 11.4 on admission, now resolved. BMP unremarkable throughout admission. CT of right LE showed subcutaneous edema without evidence for osteromyelitis of drainable fluid collection. Surgery was consulted and patient is s/p debridement with a drainable pocket of pus yesterday, which is likely why patient was not improving initially. She received 4 days of IV vancomycin and will be transitioned to Bactrim DS BID for 7 days. Patient is stable for discharge today with outpatient wound care and PCP follow up. Discharge discussed with: patient, family - Time Spent with Patient Total time spent providing and/or coordinating discharge services: - Discharge Medications Prescriptions: New Sulfamethoxazole/Trimeth DS [Bactrim DS] 2 each PO BID 7 Days #28 tablet Nicotine Patch [Nicoderm] 21 mg TD HS #28 [email or web address] Hydrocodone/Acetaminophen [[place] 5-325 Tablet] 1 each PO Q6H PRN 3 Days #10 tablet PRN Reason: Pain Discontinued Sulfamethoxazole/Trimeth DS [Bactrim DS] 1 tab PO BID cephALEXin [Keflex] 500 mg PO BID Home Medications: Hydrocodone/Acetaminophen [[place] 5-325 Tablet] 1 each PO Q6H PRN 3 Days #10 tablet 11/09/18 [Rx] Nicotine Patch [Nicoderm] 21 mg TD HS #28 [email or web address] 11/09/18 [Rx] Sulfamethoxazole/Trimeth DS [Bactrim DS] 2 each PO BID 7 Days #28 tablet 11/09/18 [Rx] Allergies/Adverse Reactions: Allergy/AdvReac Type Severity Reaction Status Date / Time No Known Allergies Allergy Verified 11/07/18 18:27 Date of admission: 11/06/18 23:50 Primary care physician: PCP NONE Consults: 11/07/18 03:39 Consult to Surgery [CONS] Routine Consulting Provider: Acute Care Surgery Reason for Consult: Abscess of right hip. I/D performed Friday at [facility] and started on antibiotics but continues to have drainage with worsening pain and redness around site. Reports being advised to come to [facility] for further evaluation. Call Completed: Yes Discharging clinician: Tahira Cruz Anticipated date of discharge: 11/09/18 - Constitutional Vitals: Temp Pulse Resp BP Pulse Ox 98.6 F 58 16 111/73 99 11/09/18 07:53 11/09/18 07:53 11/09/18 07:53 11/09/18 07:53 11/09/18 07:53 Exam: Gen.alert and oriented, no acute distress. Sitting up comfortably in bed. Headnormocephalic, atraumatic EyesEOMI, nonicteric sclera Necktrachea midline CardioRRR, s1 and s2 normal, no murmurs Resp-CTAB, no wheezing Extremities wound s/p debridement with packing in place, tenderness around the wound, no erythema or warmth noted. Skinwarm, dry, intact. No rashes noted. Neurono focal deficits Psychappropriate mood and affect - Patient Status Disposition: Home, Self-Care Condition: Good Overall status at discharge: patient is progressing back to baseline - Discharge Instructions Follow Up With: Maciej Antonio MD [Non-Partnered Physician] - (7-10 days (in wound care)) [facility] [Outside] Additional Instructions: Daily wound care: remove dressing and packing. Shower with antibacterial soap. Repack with 1/2 inch iodoform gauze. Cover with a dry dressing. Tape to secure. - Diet and Activity Activity: increase activity as tolerated
[2018-11-09 15:07] VITALS: BP 113/71
[2018-11-09] MEDS ORDERED: Aminoglycoside Consult 1 EACH MC ONE (17:12)
== END 2018-11-09 17:13 | disposition home or self-care (01) ==
LOC: EMEROOARM 18:56 → 3ANU 18:56 → SUATTDRO 23:50 → 3ANU 11-07 00:06
PROVIDERS: ADMIT Pediatrics; ATTEND Internal Medicine